=== PATIENT | male | born 1965 | race Caucasian/White ===

== ENCOUNTER 2023-12-02 11:06 | Outpatient (REF) | payer MEDICAID, SELFPAY | END 2023-12-02 11:07 | disposition home or self-care (01) | LOC: HO.HOSX 11:06 | PROVIDERS: Visit Provider Orthopaedic Surgery | DX: Z13.89 Encounter for screening for other disorder (principal) ==

== ENCOUNTER 2023-12-16 08:45 | Outpatient (REF) | payer MEDICAID, SELFPAY | END 2023-12-16 08:46 | disposition home or self-care (01) | LOC: HO.HOSX 08:45 | PROVIDERS: Visit Provider Orthopaedic Surgery | DX: Z13.89 Encounter for screening for other disorder (principal) ==

== ENCOUNTER 2023-12-24 09:45 | Outpatient (AMB) | payer MEDICAID, SELFPAY ==
--- NOTE | 2023-12-24 09:46 | A.OFFVIS_ITS ---
Vital Signs 12/24/23 09:52 Height 5 ft 10 in Weight 175 lb BMI 25.1 Intake Visit Reasons: [employer]-Right knee pain/swelling Intake Note: James is a 58 year old male who presents with right knee pain and swelling. The patient describes his pain as sharp in nature. His pain has gotten worse over the last 2 months in spite of continued non operative treatments. Has done range of motion exercises which seemed to aggravate his pain. He has also tried Tylenol which gives him minimal relief. Does not recall any specific traumatic event preceding the onset of his pain. Allergies No Known Allergies Allergy (Verified 12/24/23 09:50) Medication List - Last Reconciled 12/24/23 by Anthony Be MD No Known Home Meds Physical Exam Vital Signs: BMI result Body Mass Index 25.1 Const Other: Well-nourished well-developed very friendly male awake alert and oriented x3 in no acute distress Extrem Other: Bilateral lower extremity examination shows good capillary refill, no skin lesions noted, normal sensation light touch Right knee examination shows a mild effusion, palpable crepitus with range of motion, pain with range of motion, no instability Office Procedures Joint Injection/Aspiration Joint Injection/Aspiration Primary Site: right knee Prep: site was prepped using aseptic technique Injected: 40 mg of, DepoMedrol and 1% plain lidocaine Procedure: The patient tolerated the procedure well Coding 85827 - Large joint Procedure code (CPT) selection complete Assessment & Plan Assessment & Plan (1) Right knee pain: Code(s): M25.561 - Pain in right knee Category: Medical Plan Mr. Calero presents with right knee pain most likely due to early degenerative joint disease. I had a lengthy discussion with the patient regarding the treatment options. The risks and benefits of a right knee cortisone injection were discussed at length with the patient. The patient wished to proceed. Prior to the injection I aspirated 2 cc of clear fluid from his right knee. The patient tolerated the injection well. He will continue with his home exercise program. He will contact me prior to his follow-up appointment in 3 months should any questions or concerns arise. Feel free to call me at any time should questions regarding his orthopedic management arise. Thank you very much for asking me to see this very friendly gentleman. I spent 21 minutes in reviewing the patient's records and imaging studies, seeing the patient and documenting in the medical record. Orders: Orders XR knee RT 3V Today M25.561 - Pain in right knee AMB Joint Injection/Aspiration Today M25.561 - Pain in right knee Coding Level of Care Code New Pt Level 3 (48760) Complex EM visit Add On G2211 Diagnoses Right knee pain M25.561 CPT Codes Coding - 95150 Large joint: 63019 - Large joint ([id number])
[2023-12-24 09:52] VITALS: BMI 25.1
== END 2023-12-24 10:17 | disposition home or self-care (01) ==
PROVIDERS: PCP Internal Medicine; Visit Provider Orthopaedic Surgery
DX: M25.561 Pain in right knee (principal)
CPT/HCPCS: 20610; 99203

== ENCOUNTER → 2023-12-24 09:45 | Outpatient (BNVA) | payer MEDICAID, SELFPAY | PROVIDERS: PCP Internal Medicine; Visit Provider Orthopaedic Surgery | DX: M25.561 Pain in right knee (principal) | CPT/HCPCS: 20610; 99202; J1010 ==

== ENCOUNTER 2024-03-24 09:20 | Outpatient (REF) | payer MEDICAID, SELFPAY | END 2024-03-24 09:21 | disposition home or self-care (01) | LOC: HO.HOSX 09:20 | PROVIDERS: Visit Provider Orthopaedic Surgery | DX: Z13.89 Encounter for screening for other disorder (principal) ==